=== PATIENT | female | born 1960 | race Caucasian/White ===

== ENCOUNTER 2025-04-29 14:13 | Emergency (ER) | payer BC, SELFPAY ==
[2025-04-29] VITALS (11 sets, daily range): BP systolic 109–140; BP diastolic 69–89; BMI 35.9
[2025-04-29 14:41] LABS: Hematocrit 28.0 % (37.0-47.0); Hemoglobin 9.2 g/dL (12.0-16.0); Mean Corp Hgb Conc. 32.9 g/dL (33.0-37.0); Mean Corpuscular Volume 88.3 fL (81.0-99.0); Nucleated Red Blood Cells % 0.2 %; Platelet Count 522 10^3/uL (130-400); Red Cell Dist. Width 14.0 % (11.5-14.5)
--- NOTE | 2025-04-29 14:41 | ED.GENMED ---
History of Present Illness
General
Chief Complaint: Chest Pain
Source: patient and other (Friend who is at the bedside)
Exam Limitations: none
Time Seen by Provider: 04/29/25 14:20
Nursing documentation reviewed up to this point in time: agreed with
History of Present Illness
History of Present Illness:
The patient is a very pleasant 64-year-old female who underwent aortic valve replacement with a Valve at [facility] with Dr. Nelson Hoffman about 10 days ago. Patient reports that since surgery, she has had soreness in her left chest. Patient reports
that this afternoon she suddenly developed worsening sharp left-sided chest pain. Patient reports that shortly after developing the chest pain, she developed a feeling of dizziness and lightheadedness. Patient reports that she still feels slightly
lightheaded but the chest pain has eased up substantially. Patient denies acute visual changes, cough and shortness of breath.
Past History
Past History
ED Past Medical History: Other (Ulcerative colitis)
ED Past Surgical History: Cardiac
Social History
Tobacco: Non-smoker
Alcohol: None
Drug: None
Personal:
Living: with family
Employment: Other
Family History
Family History: Other
Review of Systems
Review of Systems
Allergies reviewed?: Yes
Other source history: other (Friend)
All Other Systems: ROS reviewed and negative except as documented in HPI and ROS
Constitutional: Reports no symptoms
EENT: Reports no symptoms
Respiratory: Reports no symptoms
Cardiac: Reports chest pain and syncope (Did not pass out but felt very lightheaded)
ABD/GI: Reports no symptoms
: Reports no symptoms
Musculoskeletal: Reports no symptoms
Skin: Reports no symptoms
Neurological: Reports no symptoms
Endocrine: Reports no symptoms
Hematologic/Lymphatic: Reports no symptoms
Psychiatric: Reports no symptoms
Phy Exam
Physical Exam
Physical Exam:
Physical Exam
General: no apparent distress, not acutely ill
Neck: supple. no meningeal signs. normal psoterior pharynx
Heart: s1/s2 regular rate and rhythm, healing sternal incision without any sign of erythema
Lungs: no acute respiratory distress. clear bilaterally
Abdomen: normal bowel sounds. not tender. no CVAT
Neuro: alert and oriented. no focal neurological deficits
Skin: no rash
Psychiatric: well kept. interactive and cooperative
Extremities: no edema. no calf tenderness. negative homans. good distal pulses
Scores
Heart Score for Chest Pain Patients
STEMI patient?: Not applicable
Course
Orders/Labs/Results
Orders:
Orders
04/29/25 14:18
Electrocardiogram (*1) Urgent
Reason for Study: Chest Pain
04/29/25 14:19
EKG- Treatment ONCE
04/29/25 14:32
CMP [Comprehensive Metabolic Panel] Urgent
Complete Blood Count/With Diff Urgent
Lipase Urgent
Troponin I Urgent
04/29/25 15:03
CT Chest PE Study Urgent
Comment:
Reason For Exam: CP after aortic valve repair
04/29/25 16:48
Troponin I Urgent
04/29/25 17:13
Echo 2D MMode Color/Doppler Urgent
Reason for Study: CP, post-aortic valve restrosternal hematoma
04/29/25 17:32
0.9% Sodium Chloride 1000 ml [Nss] 1,000 ml IV BOLUS
Abnormal Lab Results
04/29/25 04/29/25
14:32 16:48
WBC 12.6 H 10^3/uL
(4.8-10.8)
RBC 3.17 L 10^6/uL
(4.20-5.40)
Hgb 9.2 L g/dL
(12.0-16.0)
Hct 28.0 L %
(37.0-47.0)
MCHC 32.9 L g/dL
(33.0-37.0)
Plt Count 522 H 10^3/uL
(130-400)
Abs Immat Gran (auto) 0.2 H 10^3/uL
(0-0.05)
Absolute Neuts (auto) 7.6 H 10^3/uL
(1.4-6.5)
Absolute Lymphs (auto) 3.7 H 10^3/uL
(1.2-3.4)
Absolute Monos (auto) 0.7 H 10^3/uL
(0.1-0.6)
Immature Gran % 1.5 H %
(0-0.5)
Creatinine 0.5 L mg/dL
(0.6-1.0)
Glucose 130 H mg/dl
(70-99)
Troponin I 0.047 H* ng/ml 0.045 H* ng/ml
04/29/25 14:32
04/29/25 14:32
Vital Signs
Initial and Last Documented VS:
Initial Vital Signs
Pulse Resp BP Pulse Ox
100 24 109/69 96
04/29/25 14:18 04/29/25 14:18 04/29/25 14:18 04/29/25 14:18
Last Documented Vital Signs
Pulse Resp BP Pulse Ox
89 16 124/79 97
04/29/25 19:00 04/29/25 19:00 04/29/25 19:00 04/29/25 18:45
MDM/Problems Addressed
Differential Diagnosis Includes:
Acute coronary syndrome, PE, pleural effusion
MDM/Problems Addressed:
Patient complains of acute worsening chest pain and lightheadedness
Chronic conditions affecting care:
Ulcerative colitis
Acute Exacerbation and/or Progression of Chronic Illness:
Patient has no abdominal pain or diarrhea to suggest acute exacerbation of ulcerative colitis.
*Radiology
Radiology exam reviewed: radiology read reviewed
*Pulse Oximetry
SaO2: 96
Oxygen Mode of Delivery: Room air
Patient hypoxic: no
*EKG
Interpreted by ED Provider?: Yes
Interpretation: abnormal
Comparison EKG: no comparison EKG present
Rate: normal
Rhythm: sinus
[place]: left axis deviation
Interval: normal interval
QRS Pattern: normal QRS
Ischemia: non-specific ST changes
*Early Years Teacher Interpretation
Rate: normal
Interpretation: normal
Rhythm: sinus
*Critical Care Note
Total Time (30-74mins, 75-104mins- exclusive of procedures): 55 minutes
comment:
55 minutes critical care given to patient including frequent reassessments of her heart rate, blood pressure, counseling patient and about CT findings, reviewing her EKG, reviewing her lab work as well as speaking to Dr. Nelson Yao at [facility]
Data Reviewed
Source: patient and family
Patient Management
Social determinants of health affecting care: Living situation and Strong social support
Discussion with other providers: Other (Dr nelson Yao (CT surgery at [facility]))
Escalation/DeEscalation of care consider admission/obs:
Given that patient has large retrosternal hematoma, decision made to transfer her to [facility] for cardiac echo to look for any signs of right heart strain or cardiac tamponade. For now patient has had a normal blood pressure. Heart rate has been
generally 100 bpm or less. Patient appears completely stable.
ED Attending Note
-
Portions of this chart may have been created with voice recognition software.� Occasional wrong word or��sound alike� substitutions may have occurred due to the inherent limitations of voice recognition software.
Discharge Plan
Departure
Patient Disposition: [facility]
Date of Disposition: 04/29/25
Time of Disposition: 17:33
Patient with high blood pressure during this ER visit?: No
Condition: Good
Discharge Problem:
Retrosternal hematoma
Referrals:
Mirella Olivier MD [Family Provider, Internal Medicine]
Hospital Transfer
Other hospital: [facility]
I certify that the patient requires transfer: Yes
Discussed case with accepting physician: Dr Nelson Yao
Reason for transfer: availability of service and continuity of care PCP
Interventions
Interventions:
*General Assessment Last Done: 04/29/25 14:21
*Neglect/Abuse Screening Last Done: 04/29/25 14:21
*ED- Fall Risk Assessment Last Done: 04/29/25 14:19
*ED COVID-19 Vaccine History Last Done: 04/29/25 14:19
ED- Cardiac Assessment Last Done: 04/29/25 14:24
Discharge Date and Time
Print Language: [place]
[2025-04-29 15:02] LABS: ALT (SGPT) 22 U/L (0-35); AST (SGOT) 25 U/L (14-36); Albumin 4.4 g/dl (3.5-5.0); Alkaline Phosphatase 80 U/L (38-126); Blood Urea Nitrogen 14 mg/dl (7-17); Calcium 10.0 mg/dl (8.4-10.2); Carbon Dioxide 24 mmol/L (22-30); Chloride 102 mmol/L (98-107); Estimated Creatinine Clearance 105 ml/min; Glucose 130 mg/dl (70-99); Lipase 69 U/L (23-300); Potassium 4.4 mmol/L (3.5-5.1); Sodium 138 mmol/L (135-145); Total Protein 8.1 g/dl (6.3-8.2); eGFR > 60.00
[2025-04-29 15:31] LABS: Troponin I 0.047 ng/ml
[2025-04-29] MEDS: NSS 1000 IV ×2 (17:57→20:53)
[2025-04-29 18:07] LABS: Troponin I 0.045 ng/ml
[2025-04-29] MEDS: TYLENOL 1000 MG PO (21:05)
[2025-04-29] MEDS: LIPITOR 20 MG PO (22:46)
[2025-04-29] MEDS: TOPROL XL 50 MG PO (22:47)
[2025-04-29] MEDS: TUMS CHEWABLE TABLET 200 MG PO (22:49)
[2025-04-30] VITALS: BP 106/72
[2025-04-30 01:00] VITALS: BP 112/76
[2025-04-30 02:00] VITALS: BP 108/75
[2025-04-30 03:00] VITALS: BP 130/81
[2025-04-30 04:00] VITALS: BP 122/83
[2025-04-30 04:30] VITALS: BP 122/83
== END 2025-04-30 04:43 | disposition short-term general hospital (02) ==
LOC: EMR 14:13
PROVIDERS: EMERGENCY PHYSICIAN Emergency Medicine; FAMILY PHYSICIAN Internal Medicine
DX: S20.219A Contusion of unspecified front wall of thorax, initial encounter (principal); I97.638 Postprocedural hematoma of a circulatory system organ or structure following other circulatory system procedure; Y83.8 Other surgical procedures as the cause of abnormal reaction of the patient, or of later complication, without mention of misadventure at the time of the procedure; Z95.2 Presence of prosthetic heart valve
CPT/HCPCS: 99291; 96360; 96361; 71275; 80053; 83690; 84484; 85025; 93005; Q9967

== ENCOUNTER 2025-05-10 19:00 | Emergency (ER) | payer BC, SELFPAY ==
[2025-05-10 19:06] VITALS: BP 137/97
[2025-05-10 19:37] LABS: Hematocrit 27.7 % (37.0-47.0); Hemoglobin 9.2 g/dL (12.0-16.0); Mean Corp Hgb Conc. 33.2 g/dL (33.0-37.0); Mean Corpuscular Volume 85.5 fL (81.0-99.0); Nucleated Red Blood Cells % 0 %; Platelet Count 499 10^3/uL (130-400); Red Cell Dist. Width 14.0 % (11.5-14.5)
[2025-05-10 19:53] LABS: COVID-19 Antigen Negative (Negative)
[2025-05-10 20:00] LABS: ALT (SGPT) 14 U/L (0-35); AST (SGOT) 20 U/L (14-36); Albumin 3.9 g/dl (3.5-5.0); Alkaline Phosphatase 98 U/L (38-126); Blood Urea Nitrogen 15 mg/dl (7-17); Calcium 9.6 mg/dl (8.4-10.2); Carbon Dioxide 26 mmol/L (22-30); Chloride 104 mmol/L (98-107); Glucose 105 mg/dl (70-99); Potassium 4.9 mmol/L (3.5-5.1); Sodium 137 mmol/L (135-145); Total Protein 7.6 g/dl (6.3-8.2); eGFR > 60.00
[2025-05-10 20:02] LABS: Troponin I < 0.012 ng/ml
--- NOTE | 2025-05-10 21:05 | ED.GENMED ---
History of Present Illness
General
Chief Complaint: Fever
Source: patient and spouse
Time Seen by Provider: 05/10/25 20:48
History of Present Illness
History of Present Illness:
This patient is a 64-year-old female presents emergency department with complaints of low-grade fever, chills, and fatigue associated with a mild headache that started yesterday. Here she felt better this morning and had a visiting nurse come by
who noted that she did not have a fever. She questioned whether or not there was a small amount of fluid in her lower lungs but thought that it was okay. Patient states she felt well, but throughout the day her symptoms recurred. She denies
nausea, vomiting, sore throat, rhinorrhea. She has an occasional dry cough which is unchanged since her surgery on April 20. She denies abdominal pain, new rash, tick bite. She denies chest pain or shortness of breath, or other complaints. Of
note, patient had an aortic valve replacement on April 20. She did develop a retrosternal hematoma for which she presented to [facility] on April 29 and was transferred to [place]. After subsequent testing including echocardiogram, she was
told that it would 'resolve' spontaneously and went home. She has been generally recovering well.
Past History
Past History
ED Past Medical History: GERD, HTN, Hypercholesterolemia and Other (Ulcerative colitis)
ED Past Surgical History: Cardiac
Social History
Tobacco: Non-smoker
Alcohol: Occasional
Drug: None
Personal:
Living: with family
Employment: Other
Family History
Family History: Other
Phy Exam
Physical Exam
Physical Exam:
GENERAL: Alert , in no apparent distress
EYE: pupils equal and reactive, no photophobia
NECK: Supple, no significant adenopathy.
ENT: o/p clr, mmm.
CARDIAC: Regular rate and rhythm .
LUNGS: Clear breath sounds bilaterally, no acute respiratory distress, no wheezes/rales/rhonchi. Central sternal incision clean and dry, no drainage or erythema. The inferior margin has granulation tissue
ABDOMEN: Soft, without focal tenderness, no r/g, no cvat
NEUROLOGICAL: Alert and oriented, no focal neuro deficits
SKIN: Warm and dry, skin intact.
MUSCULOSKELETAL: No edema, well perfused.
PSYCH: Normal and appropriate interaction.
Course
Orders/Labs/Results
Orders:
Orders
05/10/25 19:13
Electrocardiogram (*1) Urgent
Reason for Study: Shortness of Breath
05/10/25 19:14
EKG- Treatment ONCE
05/10/25 19:27
COVID-19 Antigen Urgent
Source: Nasal Swab
Complete Blood Count/With Diff Urgent
Comprehensive Metabolic Panel Urgent
Troponin I Urgent
Influenza A+B Rapid Molecular Urgent
JAYSHREE Source: Nasal Swab
Specimen Description:
05/10/25 21:05
CR Chest - 2 Views Urgent
Comment:
Reason For Exam: fever
05/10/25 22:11
Lactic Acid Q4H
Comment: CANCEL 2nd LACTIC ACID IF 1st LACTIC ACID IS LESS THAN 2
Blood Culture Q30M
JAYSHREE Source: Blood/Venous
Specimen Description:
Blood Culture Q30M
JAYSHREE Source: Blood/Venous
Specimen Description:
Abnormal Lab Results
05/10/25
19:27
WBC 11.8 H 10^3/uL
(4.8-10.8)
RBC 3.24 L 10^6/uL
(4.20-5.40)
Hgb 9.2 L g/dL
(12.0-16.0)
Hct 27.7 L %
(37.0-47.0)
Plt Count 499 H 10^3/uL
(130-400)
Absolute Neuts (auto) 7.8 H 10^3/uL
(1.4-6.5)
Absolute Monos (auto) 0.8 H 10^3/uL
(0.1-0.6)
Creatinine 0.5 L mg/dL
(0.6-1.0)
Glucose 105 H mg/dl
(70-99)
05/10/25 19:27
05/10/25 19:27
Vital Signs
Initial and Last Documented VS:
Initial Vital Signs
Temp Pulse Resp BP Pulse Ox
98.8 F 114 18 137/97 98
05/10/25 19:06 05/10/25 19:06 05/10/25 19:06 05/10/25 19:06 05/10/25 19:06
Last Documented Vital Signs
Temp Pulse Resp BP Pulse Ox
98.8 F 111 28 120/92 96
05/10/25 19:06 05/10/25 23:00 05/10/25 23:00 05/10/25 23:00 05/10/25 22:05
*Pulse Oximetry
SaO2: 98
Patient hypoxic: no
*Critical Care Note
Total Time (30-74mins, 75-104mins- exclusive of procedures): Not Applicable
Update Note
Update Note:
Patient presents to the Emergency Department with __fever, fatigue, achiness, chills, mild headache
Number and Complexity of Problems Addressed at the Encounter
� Chronic conditions affecting care:
� Acute Exacerbation and/or Progression of Chronic Illness:
� Differential Diagnosis includes: But not limited to influenza, COVID, viral illness, pneumonia, UTI, etc. etc.
Amount and/or Complexity of Data to be Reviewed and Analyzed
� I performed an independent evaluation of and my interpretation is:
EKG: Sinus tachycardia, no acute ischemia
CT:
Xrays:suspect atelectasis, less likely pna read by radiology
Laboratory Studies:hgb stable at 9.2, sl leukocytosis as before, lactic acid wnl
Other:
� Review of other/old records reveals:
� Clinical information was obtained by an independent historian: who is bedside
� Prescriptions/Medications Considered but not given:
� Further testing considered but not performed:
Risk of Complications and/or Morbidity or Mortality of Patient Management
� Social determinants of health affecting care:
� Discussion with other providers (PCP, Hospitalists, Consultants, etc):
� Escalation of care including admission/observation vs risk of discharge considered: Patient would like to go home, does not want to wait to give a urine here. I think it is very low likelihood that she has UTI related symptoms
given lack of dysuria, urgency, frequency, flank pain, etc. Patient does not have a fever here, most recent heart rate 102, I agree assessed her several times and she remains awake alert and well-appearing. Blood cultures are pending, workup
otherwise unremarkable. She does not appear toxic. Consideration for observation versus discharge, they elect to go home and will contact CT surgery in the morning. They also recognize that blood cultures are pending and they will follow-up with
these results with her doctor. While endocarditis or more serious cause of fever always possible, appears unlikely with workup thus far. Patient will be closely followed and understands reasons to return to the ER
ED Attending Note
-
Portions of this chart may have been created with voice recognition software.� Occasional wrong word or��sound alike� substitutions may have occurred due to the inherent limitations of voice recognition software.
Discharge Plan
Departure
Patient Disposition: Home (Routine Discharge)
Date of Disposition: 05/10/25
Time of Disposition: 22:51
Patient with high blood pressure during this ER visit?: Yes
Condition: Good
Discharge Problem:
Fever
Instructions: Fever, Adult (DC), BLOOD PRESSURE
Prescriptions:
No Action
acetaminophen 325 mg Tablet
650 mg PO Q6H PRN (Reason: pain)
atorvastatin 20 mg Tablet
20 mg PO HS
metoprolol succinate 50 mg Tablet Extended Release 24 Hr
50 mg PO HS
hydromorphone 2 mg Tablet
2 mg PO Q6H PRN (Reason: pain)
esomeprazole magnesium [Nexium] 40 mg Capsule,Delayed Release(Dr/Ec)
40 mg PO DAILY
aspirin 81 mg Tablet
81 mg PO DAILY
furosemide 20 mg Tablet
20 mg PO DAILY
Referrals:
Mirella Olivier MD [Family Provider, Internal Medicine]
Activity Restrictions/Additional Instructions:
it IS VERY IMPORTANT THAT YOU FOLLOW-UP WITH YOUR DOCTOR TOMORROW (SATURDAY) MORNING. PLEASE CALL YOUR CARDIOTHORACIC SURGEON WELL YOUR PRIMARY CARE DOCTOR. YOU HAD BLOOD CULTURES THAT ARE PENDING AND NEED TO BE FOLLOWED UP ON. IF YOU
DEVELOP LIGHTHEADEDNESS, LETHARGY, VOMITING, CHEST PAIN, SHORTNESS OF BREATH, ABDOMINAL PAIN, GET WORSE, DO NOT GET BETTER, OR OTHER WORRISOME SIGNS, PLEASE RETURN TO THE ER IMMEDIATELY! You have blood cultures here that are pending and need to be
followed up on.
Interventions
Interventions:
*Risk Screen - Suicide Last Done: 05/10/25 19:12
*General Assessment Last Done: 05/10/25 19:12
*Neglect/Abuse Screening Last Done: 05/10/25 19:12
*ED- Fall Risk Assessment Last Done: 05/10/25 23:11
*ED COVID-19 Vaccine History Last Done: 05/10/25 23:11
*Nursing Disposition Last Done: 05/10/25 23:11
ED- Neurological Assessment Last Done: 05/10/25 23:11
ED-Skin Assessment Last Done: 05/10/25 22:59
Discharge Date and Time
Discharge Date/Time: 05/10/25 23:12
Print Language: ISRAELI
[2025-05-10 21:26] VITALS: BP 127/92
[2025-05-10 23:00] VITALS: BP 120/92
== END 2025-05-10 23:12 | disposition home or self-care (01) ==
LOC: EMR 19:00
PROVIDERS: Emergency Medicine; EMERGENCY PHYSICIAN Emergency Medicine; FAMILY PHYSICIAN Internal Medicine
DX: R50.9 Fever, unspecified (principal); R51.9 Headache, unspecified; I10 Essential (primary) hypertension; E78.00 Pure hypercholesterolemia, unspecified; Z95.2 Presence of prosthetic heart valve; Z11.52 Encounter for screening for COVID-19; R00.0 Tachycardia, unspecified; Z87.19 Personal history of other diseases of the digestive system
CPT/HCPCS: 99285; 71046; 80053; 83605; 84484; 85025; 87040; 87502; 87811; 93005